=== PATIENT | female | born 1995 | race Caucasian/White ===

== ENCOUNTER 2019-10-09 07:04 | Emergency (ER) | payer OTHER ==
[2019-10-09 07:13] VITALS: BP 123/78; PULSE 115; TEMP 97.6; BMI 26.4
[2019-10-09] MEDS ORDERED: IBUPROFEN 600 MG TABLET (FP) PO ONE ×2 (07:41→07:54)
--- NOTE | 2019-10-09 07:44 | PDOC ---
History of Present Illness - General History Source: Patient Exam Limitations: No Limitations <EffiemilaErica fraustoca - Last Filed: 10/09/19 08:41> <Goldie Tellez - Last Filed: 10/09/19 08:48> - General Chief Complaint: Injury Stated Complaint: FINGER INJURY Time Seen by Provider: 10/09/19 07:18 Past History - Travel Traveled outside of the country in the last 30 days: No Close contact w/someone who was outside of country & ill: No - Past Medical History COPD: No Other medical history: TBI - Immunization History Immunization Up to Date: Yes - Psycho Social/Smoking Cessation Hx Smoking History: Never smoked Have you smoked in the past 12 months: No Hx Alcohol Use: No Drug/Substance Use Hx: No Substance Use Type: None <CedCyndeeLaura - Last Filed: 10/09/19 08:41> <Goldie Tellez - Last Filed: 10/09/19 08:48> - Past Medical History Allergies/Adverse Reactions: Allergies Allergy/AdvReac Type Severity Reaction Status Date / Time No Known Allergies Allergy Verified 10/09/19 07:08 Home Medications: Ambulatory Orders Escitalopram Oxalate [Lexapro -] 5 mg PO DAILY #30 tablet 03/19/16 Review of Systems - Review of Systems Able to Perform ROS?: Yes Comments:: 10/09/19 07:41 CONSTITUTIONAL: Absent: fever, chills, diaphoresis, generalized weakness, malaise, loss of appetite HEENT: Absent: rhinorrhea, nasal congestion, throat pain, throat swelling, difficulty swallowing, mouth swelling, ear pain, eye pain, visual Changes CARDIOVASCULAR: Absent: chest pain, loss of consciousness, palpitations, irregular heart rate, peripheral edema MUSCULOSKELETAL: Present: Left fifth finger pain absent: myalgia, joint swelling SKIN: Absent: rash, itching, pallor NEUROLOGIC: Absent: headache, focal weakness or paresthesias, dizziness, unsteady gait, seizure, mental status changes, bladder or bowel incontinence PSYCHIATRIC: Absent: anxiety, depression, suicidal or homicidal ideation, hallucinations. Is the patient limited Cymraes proficient: No <CedCyndeeLaura - Last Filed: 10/09/19 08:41> *Physical Exam - Vital Signs Last Vital Signs Temp Pulse Resp BP Pulse Ox 97.6 F 115 H 18 123/78 100 10/09/19 07:09 10/09/19 07:09 10/09/19 07:09 10/09/19 07:09 10/09/19 07:09 - Physical Exam 10/09/19 07:42 GENERAL: The patient is awake, alert, and fully oriented, in no acute distress. HEAD: Normal with no signs of trauma. EYES: Pupils equal, round and reactive to light, extraocular movements intact, sclera anicteric, conjunctiva clear. EXTREMITIES: Tenderness palpation of the left fifth finger with associated swelling and bruising at the PIP. Normal range of motion, no edema. NEUROLOGICAL: Normal speech, normal gait. PSYCH: Normal mood, normal affect. SKIN: Warm, Dry, normal turgor, no rashes or lesions noted. <Laura Coughlin - Last Filed: 10/09/19 08:41> - Vital Signs Last Vital Signs Temp Pulse Resp BP Pulse Ox 97.6 F 115 H 18 123/78 100 10/09/19 07:09 10/09/19 07:09 10/09/19 07:09 10/09/19 07:09 10/09/19 07:09 <Goldie Tellez - Last Filed: 10/09/19 08:48> Procedures - Splinting Splint Location: Left: Hand Pre-Proc Neuro Vasc Exam: normal Hand-Made Type: orthoglass Splint Type: Yes: Ulnar Post-Proc Neuro Vasc Exam: unchanged from pre-exam Rodrigo Bandage: yes, 2" <Laura Coughlin - Last Filed: 10/09/19 08:41> ED Treatment Course - Medications Given in the ED: ED Medications Discontinued Medications Generic Name Dose Route Start Last Admin Trade Name Freq PRN Reason Stop Dose Admin Ibuprofen 600 mg 10/09/19 07:41 10/09/19 07:59 Motrin - PO 10/09/19 07:42 600 mg ONCE ONE Administration <Goldie Tellez - Last Filed: 10/09/19 08:48> Medical Decision Making - Medical Decision Making 10/09/19 07:43 The patient is a 24-year-old female with past medical history of TBI, uses a walker at baseline, presents to the ER today after a mechanical trip and fall. She states that the bottom of her walker got caught on the table. She states she fell backwards landing on her left finger. She states that it bent backwards. Denies hitting her head or losing consciousness. States she briefly felt nauseous after the fall however it is since resolved. Denies fevers, chills, numbness and tingling weakness the affected extremity. A/P: Left fifth finger pain. On exam the left fifth finger is swollen with associated bruising around the PIP. The patient is able to move it. The patient is left-handed. X-ray of the finger ordered. Motrin for pain. Reevaluate 10/09/19 08:41 X-ray noted, left x-ray shows a left fifth finger proximal middle phalanx fracture at the base to mid shaft. Given the nature of the fracture, patient placed in an ulnar gutter splint. Motrin given for pain. Hand specialty given. Told patient to follow-up on Saturday for further treatment options. Discharge home I discussed the physical exam findings, ancillary test results and final diagnoses with the patient. I answered all of the patient's questions. The patient was satisfied with the care received and felt comfortable with the discharge plan and treatment plan. The Patient agrees to follow up with the primary care physician/specialist within 24-72 hours. Return precautions were given. <Laura Coughlin - Last Filed: 10/09/19 08:41> - Medical Decision Making The patient was seen and evaluated in conjunction with midlevel provider under my direct supervision, ancillary studies were reviewed. I agree with the plan as outlined with BRUCE Coughlin. HPI, workup/dispo as outlined. VS reviewed, + tachy from pain. repeat VS. xray of left fifth finger with prox metaphalanx fx from base to mid shift. splinted for immobilization, ulnar gutter given location and fracture analgesia ortho followup anticipate discharge, pcp followup, return precautions 10/09/19 08:31 10/09/19 08:32 10/09/19 08:48 <Goldie Tellez - Last Filed: 10/09/19 08:48> Discharge - Discharge Information Problems reviewed: Yes - Admission No <Laura Coughlin - Last Filed: 10/09/19 08:41> <Goldie Tellez - Last Filed: 10/09/19 08:48> - Discharge Information Clinical Impression/Diagnosis: Finger fracture, left Qualifiers: Encounter type: initial encounter Finger: middle finger Fracture type: closed Phalanx: middle Fracture alignment: nondisplaced Qualified Code(s): S62.653A - Nondisplaced fracture of middle phalanx of left middle finger, initial encounter for closed fracture Condition: Stable Disposition: HOME - Follow up/Referral Referrals: Mathew Villanueva MD [Staff Physician] - Anjel Spencer MD [Staff Physician] - - Patient Discharge Instructions Patient Printed Discharge Instructions: DI for Finger Fracture Additional Instructions: You were evaluated for your finger injury today. You did break your left fifth finger. Please wear the splint until you can see orthopedics. Keep the splint clean and dry. Do not get it wet keep it covered while showering. You may take Motrin 600 mg every 6 hours for pain. Please follow-up with orthopedics on Saturday. A referral has been provided. Return to the ER for worsening pain, numbness and tingling to the hand, or if you have any changes in your symptoms. - Post Discharge Activity Work/Back to School Note: Back to School
== END 2019-10-09 09:00 | disposition home or self-care (01) ==
LOC: JER 07:04
PROC: 2W3KX1Z Immobilization of Left Finger using Splint (ICD-10-PCS; principal; 2019-10-09)
DX: S62.653A Nondisplaced fracture of middle phalanx of left middle finger, initial encounter for closed fracture (principal); W01.0XXA Fall on same level from slipping, tripping and stumbling without subsequent striking against object, initial encounter; Y93.89 Activity, other specified; Y92.89 Other specified places as the place of occurrence of the external cause; Y99.9 Unspecified external cause status
CPT/HCPCS: 29131; 73130-TC-LT-FY; 99281-25

== ENCOUNTER 2020-12-29 10:37 | Emergency (ER) | payer OTHER ==
[2020-12-29 10:51] VITALS: BP 105/63; PULSE 98; TEMP 98; BMI 28.3
== END 2020-12-29 14:12 | disposition home or self-care (01) ==
LOC: JERFT 10:37
DX: M79.671 Pain in right foot (principal); R29.6 Repeated falls
CPT/HCPCS: 70486-TC; 73610-TC-RT-FY; 73630-TC-RT-FY; 99284-25

== ENCOUNTER 2021-02-11 15:15 | Emergency (ER) | payer OTHER ==
[2021-02-11 15:23] VITALS: BP 124/78; PULSE 106; TEMP 98.9; BMI 30.2
[2021-02-11] MEDS ORDERED: ERYTHROMYCIN 0.5% OPHTHALMIC OINTMENT 3.5 GM TUBE OU ONE (15:48)
[2021-02-11] MEDS ORDERED: ERYTHROMYCIN 0.5% OPHTHALMIC OINTMENT 3.5 GM TUBE ONE (15:53)
[2021-02-11] MEDS ORDERED: LORATADINE 10 MG TABLET PO ONE (15:55)
[2021-02-11] MEDS ORDERED: LORATADINE 10 MG TABLET ONE (15:56)
== END 2021-02-11 16:15 | disposition home or self-care (01) ==
LOC: JER 15:15
DX: S05.02XA Injury of conjunctiva and corneal abrasion without foreign body, left eye, initial encounter (principal)
CPT/HCPCS: 99284-25

== ENCOUNTER 2022-01-26 04:34 | Day surgery (SDC) | payer OTHER ==
[2022-01-24 09:54] VITALS: BMI 31.6
[2022-01-26] MEDS ORDERED: BUPIVACAINE HCL/PF 0.5% (5MG/ML) 10 ML VIAL ONE (07:54)
[2022-01-26] MEDS ORDERED: DEXMEDETOMIDINE HCL 200 MCG/2 ML IVPB ONE (09:29)
[2022-01-26] MEDS ORDERED: ACETAMINOPHEN INJECTION 100 ML IVPB ONE (09:29)
[2022-01-26] MEDS ORDERED: MIDAZOLAM HCL 2 MG/2 ML SINGLE DOSE VIAL ONE (10:10)
[2022-01-26] MEDS ORDERED: BUPIVACAINE HCL/PF 0.5% (5MG/ML) 10 ML VIAL IJ ONE ×2 (10:46→12:30)
[2022-01-26] MEDS ORDERED: ceFAZolin SODIUM 1 GM VIAL IVPB ONE ×2 (10:47→11:05)
[2022-01-26 13:58] VITALS: TEMP 98.4
[2022-01-26 18:51] VITALS: BP 115/68; PULSE 79
== END 2022-01-26 18:56 | disposition home or self-care (01) ==
LOC: JASU-SURG 04:34
PROVIDERS: ATTEND Surgery
PROC: 0FT44ZZ Resection of Gallbladder, Percutaneous Endoscopic Approach (ICD-10-PCS; principal; 2022-01-26 10:30)
DX: K80.10 Calculus of gallbladder with chronic cholecystitis without obstruction (principal)
CPT/HCPCS: 36415; 84703; 88304-TC; 94760

== ENCOUNTER 2024-02-10 08:20 | Emergency (ER) | payer OTHER ==
[2024-02-10 08:31] VITALS: BP 126/75; PULSE 97; RESP 18; TEMP 98.5; BMI 29.5
[2024-02-10] MEDS ORDERED: ACETAMINOPHEN 325 MG TABLET (FP) ONE (08:59)
[2024-02-10] MEDS: ACETAMINOPHEN 325 MG TABLET (FP) PO ONE (09:00)
== END 2024-02-10 12:46 | disposition home or self-care (01) ==
LOC: JERFT 08:20
DX: M25.571 Pain in right ankle and joints of right foot (principal); W18.39XA Other fall on same level, initial encounter; X50.1XXA Overexertion from prolonged static or awkward postures, initial encounter
CPT/HCPCS: 73610-TC-RT-FY; 73630-TC-RT-FY; 99283-25